=== PATIENT | male | born 1925 | race Caucasian/White ===

== ENCOUNTER 2016-11-12 07:46 | Outpatient (CLI) | payer OTHER, MEDICARE ==
[~2016-11-12] VITALS: Ht 162.6 cm; Wt 72.3 kg
--- NOTE | ~2016-11-12 | CATH ---
Cardiac Diagnostic Report Demographics Patient Name DEANN Francisco Gender Male Date of 1925 Age 89 year(s) Patient Number [id number] Date of Study 11/12/2016 Visit Number [id number] Room Number G6399 [place] [id number] Ht 162.56 cm Wt 72.3 kg Referring Chase MartinezTheresa Primary Physician Physician PA Performing Inderjit Soalres MD Secondary Physician Physician Diagnostic Inderjit Solares MD Assisting Physician Physician Interventional Physician Staff Research Associate Physician Findings and Conclusions Diagnostic Findings and Conclusion Three vessel CAD. Patent 2 of 3 graft. Diagnostic Recommendations Medical therapy. OK to proceed with surgery. Procedure Description The patient was brought to the diagnostic cardiac catheterization-EP laboratory in the fasting, non-sedated state. Informed consent was obtained in the written and verbal form after the risks and benefits were explained. The patient had no further questions and agreed to proceed. The planned puncture-incision site(s) were shaved and prepped with ChloraPrep and draped in the usual sterile manner. Conscious sedation, supplemental oxygen, and pain control medications were delivered by a registered nurse under physician guidance. Surface ECG rhythm, blood pressure measurement, and pulse oximetry were monitored throughout the procedure. Arterial access. The access site was infiltrated with lidocaine. The vessel was entered with the Seldinger technique. A sheath was advanced into the vessel and used for catheter placement. Selective left coronary angiography. A catheter was advanced into the left coronary vessel ostium under Fluoroscopic guidance. Contrast was injected by hand. Images were obtained in multiple projections. Selective right coronary angiography. A catheter was advanced into the right coronary vessel ostium under fluoroscopic guidance. Contrast was injected by hand. Images were obtained in multiple projections. Selective STOCK graft angiography. A catheter was advanced into the left internal mammary graft ostium under fluoroscopic guidance. Contrast was injected by hand. Images were obtained in multiple projections. Selective SVG angiography. A catheter was advanced into the graft proximal anastomosis under fluoroscopic guidance. Contrast was injected by hand. Images were obtained in multiple projections. Left heart catheterization with ventriculography. A catheter was advanced across the aortic valve to the left ventricle under fluoroscopic guidance. Resting hemodynamics were obtained. With the catheter at the left ventricular apex, contrast was injected. Images were obtained in ARTHUR projections. Post-ventriculography LV pressure was obtained. The catheter was gradually withdrawn into the aorta with continuous pressure recording. Arterial artery hemostasis. Hemostasis was achieved. The patient was transferred to a regular nursing floor via cart accompanied by a nurse. The patient left the laboratory in stable condition. Procedure Procedure Type Diagnostic procedure:Ventriculogram:, Left, Angiography:, Coronary Angios Indications: Abnormal Stress Test, CAD and pre surgical clearance. The procedure was explained in detail to the patient. Risks, complications and alternative treatments were reviewed. Written consent was obtained. Medications Reviewed with Patient prior to Procedure. Angiographic Findings Dominance: Right Cardiac Arteries and Lesion Findings LMCA: Normal (0% Stenosis).Large LAD: Diag 1 small ok Lesion on Mid LAD: Mid subsection.100% stenosis .Chronic total occlusion. LCx: Large dominant patent stents OM 1 small.There is a previous stent on Mid CX showing wide patency. Lesion on 2nd Ob Armida: Proximal subsection.80% stenosis .The lesion was diffuse. Comments:OM 2 medium diffuse 70-80%. RCA: Abnormal.known to be occluded. PDA large normal. Cardiac Grafts - There is a STOCK graft that originates at the STOCK and attaches to the Mid LAD (patent). - There is a graft that originates at the Aorta Right and attaches to the Mid RCA (known occlusion). - There is a graft that originates at the Aorta Left and attaches to the 1st Ob Armida (known occlusion). - There is a graft that originates at the Aorta Left and attaches to the 1st Diag (Patent). Coronary Tree Procedure Data Procedure Date Date: 11/12/2016Start: 10:12 AMEnd: 11:01 AM Entry Locations - Retrograde Percutaneous access was performed through the Right Femoral artery (Primary location). A 6 Fr sheath was inserted. Hemostasis was successfully obtained using Manual Compression. Closure Comments: manual pressure held by Michelle Taveras for 20 minutes.. Procedure Medications Order and Administration + + +-------+------+ !Time !Medication !Dosage !Route ! + + +-------+------+ !11/12/2016 10:13 AM !Versed !1 mg !I.V. ! + + +-------+------+ !11/12/2016 10:13 AM !Fentanyl !50 mcg !I.V. ! + + +-------+------+ Devices Used - A6 Fr. BS JL 4 Diag. Catheterwas used for:Left coronary angiography. - A6 Fr. BS JR 4 Diag. Catheterwas used for:Right coronary angiography. - A6 Fr. BS IMT Diag. Catheterwas used for:STOCK. - A6 Fr. BS Angled Pigtail Diag. Catheterwas used for:Left ventriculography. Contrast Material - Isovue 74242 ml Fluoroscopy Time: Diagnostic: 4:48 minutes. Total: 4:48 minutes. Fluoroscopy Dose: Diagnostic: 684 mGy. Total: 684 mGy. Estimated Blood Loss: 4 ml. Medical History Performed Procedures and Imaging Results - Stress testing with SPECT MPIwas performed. Results were: Positive. Risk/Extent of ischemia was: Intermediate risk. History of Disease + + + + !Diagnosis !Date !Comments ! + + + + !CAD ! ! ! + + + + !Hypertension ! ! ! + + + + Allergies - Codiene. 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 Admission Data Admission Date: 11/12/2016 Admission Time: 07:46 AM Admit Source: Other Admission Medications + +------+-------+ + + + + !Medication!Dosage!Times !Last !Last !Administered !Comments ! ! ! !Per Day!Delivery !Delivery ! ! ! ! ! ! !Date !Time ! ! ! + +------+-------+ + + + + !Statin ! ! ! ! !Yes ! ! !(any) ! ! ! ! ! ! ! + +------+-------+ + + + + Clinical Evaluation Leading to Procedure - The patient's CAD presentation was assessed as: Stable angina. - The patient's anginal syndrome during the past two weeks was assessed as: Class II according to the [place] Cardiovascular [employer] Classification System (CCS). - The reason for the patient's clinical laboratory medical director visit is pre-operative evaluation before non-cardiac surgery. VA LV function assessed as:Normal. Ejection Fraction - Method: LV gram. EF%: 60. LVA Segment Contractility 1 - Normal 3 - Mild 5 - Severe 7 - Dyskinesis hypokinesis hypokinesis 2 - 4 - Moderate 6 - Akinesis 8 - Aneurysm Hypokinesis hypokinesis Hemodynamics Condition: Rest O2 Consumption: Estimated: 198.51Heart Rate: 66 bpm Pressures (mmHg) +-----+ + !Site !Pressure ! +-----+ + !AO !165/54 (98) ! +-----+ + !LV !167/-3 ,12 ! +-----+ + !LV !159/-6 ,11 ! +-----+ + !LV !165/-3 ,12 ! +-----+ + !LV !167/0 ,13 ! +-----+ + !AO !163/57 (101) ! +-----+ + !LV !168/-3 ,13 ! +-----+ + Valve Gradients and Areas + +---------+---------+---------+ +---------+ + !Valve !Peak !Mean !Area !Index !Flow !Source ! + +---------+---------+---------+ +---------+ + !Aortic !0 !0 ! ! ! ! ! + +---------+---------+---------+ +---------+ + !Aortic !0 !0 ! ! ! ! ! + +---------+---------+---------+ +---------+ + Shunts Oxygen Values O2 Capacity 161.84 O2 Consumption 198.51 Discharge Data Discharge Date: 11/12/2016 Hospital Status: Outpatient Signatures dtt: Beck Jansen (cardio) dtd: 11/12/16 1012 Physician Self Edit
[~2016-11-12 07:46] MED LIST: APRESOLINE10 MG PO; BAL B-501 EACH PO; COLACE100 MG PO; COLON CARE PO; DILAUDID2 MG PO; LEVOTHYROXINE75 MCG PO; MAGNESIUM OXID250 MG PO; MILK OF MA400 MG/5 M PO; MIRALAX17 GM PO; OTC LAXATIVE PO; PAIN RELIEF650 MG PO; TETRACYCLINE H500 MG PO; VITAMIN B-1250 MCG PO; VITAMIN C1000 MG PO; XARELTO10 MG PO; ZOCOR20 M1 PO
[2016-11-12] MEDS ORDERED: LOPRESSOR25 MG PO ×2 (13:05→13:07)
== END 2016-11-12 17:26 | disposition disaster alternative care site (69) ==
LOC: GPCU 07:46 → GCAT 07:46 → GPOC 08:00 → GCAT 17:26
PROC: B2131ZZ Fluoroscopy of Multiple Coronary Artery Bypass Grafts using Low Osmolar Contrast (ICD-10-PCS; principal; 2016-11-12)
PROC: B2111ZZ Fluoroscopy of Multiple Coronary Arteries using Low Osmolar Contrast (ICD-10-PCS; principal; 2016-11-12)
PROC: B2181ZZ Fluoroscopy of Left Internal Mammary Bypass Graft using Low Osmolar Contrast (ICD-10-PCS; principal; 2016-11-12)
PROC: B2151ZZ Fluoroscopy of Left Heart using Low Osmolar Contrast (ICD-10-PCS; principal; 2016-11-12)
PROC: 4A023N7 Measurement of Cardiac Sampling and Pressure, Left Heart, Percutaneous Approach (ICD-10-PCS; principal; 2016-11-12)
DX: I25.118 Atherosclerotic heart disease of native coronary artery with other forms of angina pectoris (principal); I25.718 Atherosclerosis of autologous vein coronary artery bypass graft(s) with other forms of angina pectoris; I25.82 Chronic total occlusion of coronary artery; I10 Essential (primary) hypertension; E78.00 Pure hypercholesterolemia, unspecified; I25.2 Old myocardial infarction; E03.9 Hypothyroidism, unspecified; I45.2 Bifascicular block; K57.30 Diverticulosis of large intestine without perforation or abscess without bleeding; J98.4 Other disorders of lung; D46.20 Refractory anemia with excess of blasts, unspecified; Z79.899 Other long term (current) drug therapy; Z85.46 Personal history of malignant neoplasm of prostate; Z95.5 Presence of coronary angioplasty implant and graft; Z82.49 Family history of ischemic heart disease and other diseases of the circulatory system
CPT/HCPCS: J0583; J1644; J2001; J2250; J3010; J7030; J7060